=== PATIENT | female | born 1985 | race Asian ===

== ENCOUNTER 2020-07-03 10:50 | Emergency (ER) | payer OTHER ==
[~2020-07-03] VITALS: Ht 165.1 cm; Wt 123.0 kg
--- NOTE | 2020-07-03 11:28 | NUR ---
PT BROUGHT IN BY SPOUSE FOR MANIC PHASE OF BIPOLAR. PT MEDS HAVE RECENTLY BEEN ADJUSTED AND PT HAS BEEN REFUSING TO TAKE SOME OF THEM. PER SPOUSE PT RECENTLY WENT 3 DAYS WITHOUT SLEEPING AND HAS BEEN DISCONNECTED WITH FAMILY AND NOT TAKING CARE OF HER SON. PT DENIES PHYSIAL COMPLAINT OR SI/HI. PT STATES "MY HEAD IS HOT WITH THOUGHTS". PT PLACED IN SECURE ROOM WITH PERSONAL BELONGINGS (PHONE, WATCH, AND CLOTHES) GIVEN TO SPOUSE. PSCYH SOFT WORK WRAPPER EXAMINER TO SEE.
--- NOTE | 2020-07-03 11:38 | NUR ---
PT CLINT [phone]
[2020-07-03 12:03] LABS: BASOPHILS % (AUTO) 1 % (0-1); EOSINOPHILS % (AUTO) 3 % (1-7); LYMPHOCYTES % (AUTO) 27 % (22-44); MEAN CORPUSCULAR HEMOGLOBIN 29.4 pg (27.0-34.8); MEAN CORPUSCULAR HGB CONC 33.8 g/dL (32.4-35.8); MEAN PLATELET VOLUME 8.8 fL (7.4-10.4); MONOCYTES % (AUTO) 9 % (2-9); NEUTROPHILS % (AUTO) 60 % (42-75); PLATELET COUNT 289 x10^3/uL (130-400); RED CELL DISTRIBUTION WIDTH 13.5 % (9.6-15.2)
[2020-07-03 12:05] LABS: MD NO
[2020-07-03 12:13] LABS: ALBUMIN 3.7 g/dL (3.4-5.0); ANION GAP 7 mmol/L (5-15); CALCIUM 9.3 mg/dL (8.5-10.1); CHLORIDE 103 mmol/L (98-107)
[2020-07-03 12:14] LABS: SALICYLATE LEVEL < 1.7 mg/dL (2.8-20.0)
[2020-07-03 12:34] LABS: ALANINE AMINOTRANSFERASE 54 U/L (12-78); BILIRUBIN,TOTAL 0.4 mg/dL (0.2-1.0); CREATININE 0.76 mg/dL (0.55-1.02)
[2020-07-03 12:35] LABS: ALKALINE PHOSPHATASE 72 U/L (45-117); TOTAL PROTEIN 8.5 g/dL (6.4-8.2)
[2020-07-03] MEDS ORDERED: ZIPRASIDONE 20 MG INJ IM PRN (13:30)
--- NOTE | 2020-07-03 14:57 | NUR ---
pt moved to room 2 gait steady. sitter in place. as
--- NOTE | 2020-07-03 15:46 | NUR ---
Report from ALIE Pickens. This RN assumed care at 1515. Pt in view of sitter, in secure room. Pt flat and cooperative at this time.
[2020-07-03 16:44] LABS: AMPHETAMINE SCREEN, URINE Negative (Negative); BARBITURATE SCREEN, URINE Negative (Negative); BENZODIAZEPINE SCREEN, URINE Negative (Negative); CANNABINOID SCREEN, URINE Negative (Negative); COCAINE SCREEN, URINE Negative (Negative); METHADONE SCREEN, URINE Negative (Negative); OPIATE SCREEN, URINE Negative (Negative)
[2020-07-03] MEDS ORDERED: ZIPRASIDONE 40MG CAPSULE PO SCH (17:00)
--- NOTE | 2020-07-03 18:09 | NUR ---
THROUGHPUT: HOLD FAXING PACKET UNTIL DEPAKOTE LEVEL 100 OR LESS PER PSYCH SALVAGE ENGINEERING TECHNICIAN (ELIZABETH).
--- NOTE | 2020-07-03 19:07 | NUR ---
Report to ALIE Thorpe, to assume full care. Pt awake and watching TV in view of sitter.
[2020-07-03] MEDS ORDERED: ZIPRASIDONE 20MG CAPSULE ONE (20:46)
--- NOTE | 2020-07-03 21:08 | NUR ---
PT PACING AROUND ROOM, PT MEDICATED PER APR. PT HAD MEAL JUST PRIOR TO MEDS
[2020-07-03 21:11] VITALS: BP 138/79
--- NOTE | 2020-07-03 21:18 | NUR ---
PT IN ROOM WITH ROOM SI SECURE, PT HAS SITTER AT DOOR. PT DENIED ANY CURRENT WANTS OR NEEDS.
--- NOTE | 2020-07-03 23:08 | NUR ---
THROUGHPUT RN::PT PACKET FAXED TO [facility]
--- NOTE | 2020-07-03 23:11 | NUR ---
[facility] WILL NOT ACCEPT PT DUE TO INSURANCE.
--- NOTE | 2020-07-03 23:26 | NUR ---
REPORT TO ELI AT [facility] WHO SAID THAT DR PATEL IS ACCEPTING PT AT [facility]
--- NOTE | 2020-07-04 01:10 | NUR ---
PT RESTING IN BED, PT IN SI SECURE BED WITH SITTER AT PT DOOR. PT DENIED ANY CURRENT WANTS OR NEEDS. PT NATH EQUAL UNLABORED BREATHS.
--- NOTE | 2020-07-04 03:51 | NUR ---
PT CARE TRANSFERED TO [facility] WITH PT AMBULATING TO [facility]BO WITHOUT DIFICULTY.
== END 2020-07-04 03:53 ==
LOC: ED 13:38
DX: F31.9 Bipolar disorder, unspecified (principal); F29 Unspecified psychosis not due to a substance or known physiological condition; I48.91 Unspecified atrial fibrillation
CPT/HCPCS: 36415; 80053; 80164; 80299; 80307; 80320; 80329; 83605; 84443; 84703; 85025; 93005; 99285; G0480